=== PATIENT | female | born 1990 | race Caucasian/White ===

== ENCOUNTER 2018-11-21 02:41 | Emergency (ER) | payer SELFPAY ==
[2018-11-21] MEDS ORDERED: FAMOTIDINE 20 MG TABLET PO ONE (03:32)
[2018-11-21] MEDS ORDERED: DIPHENHYDRAMINE HCL 25 MG CAPSULE PO ONE (03:32)
[2018-11-21] MEDS ORDERED: DEXAMETHASONE SOD PHOSPHATE INJ 4 MG/1 ML VIAL IM ONE (03:32)
--- NOTE | 2018-11-21 03:35 | ER Document Report ---
HPI - HPI Patient complains to provider of: rash Time Seen by Provider: 11/21/18 03:17 Onset: Other - 2 days Quality of pain: No pain Pain Level: 2 - itchy Context: This 28-year-old female presents emergency department with complaints of a itchy rash to her upper chest that is starting to spread. Patient reports started approximately 2 days ago. She is not sure what she was exposed to she reports that she was walking in the field and could have been exposed to some kind of plant. Patient also reports that it was very high when she was wiping her chest with the shirt. She reports new detergent. Denies other symptoms such as fever vomiting diarrhea. Reports she is treated herself with Benadryl cream and hydrocortisone without relief of symptoms. No other family members have the rash. She denies allergies. Patient reports her throat feels kind of funny now also. Patient is talking in a clear voice good airway. Respiratory rate even unlabored. Associated Symptoms: None Exacerbated by: Denies Relieved by: Denies Similar symptoms previously: No Recently seen / treated by doctor: No - REPRODUCTIVE Reproductive: DENIES: : Past Medical History - General Information source: Patient Last Menstrual Period: october- denies - Social History Smoking Status: Current Every Day Smoker Cigarette use (# per day): Yes Frequency of alcohol use: None Drug Abuse: None Family History: None Patient has suicidal ideation: No Patient has homicidal ideation: No - Medical History Medical History: Negative Surgical Hx: Negative Vertical Provider Document - CONSTITUTIONAL Agree With Documented VS: Yes Exam Limitations: No Limitations General Appearance: WD/WN, No Apparent Distress - INFECTION CONTROL TRAVEL OUTSIDE OF THE [place] IN LAST 30 DAYS: No - HEENT HEENT: Atraumatic, Normocephalic. negative: Conjuctival Injection, Pharyngeal Exudate, Pharyngeal Erythema - NECK Neck: Normal Inspection, Supple. negative: Lymphadenopathy-Left, Lymphadenopathy-Right - RESPIRATORY Respiratory: Breath Sounds Normal, No Respiratory Distress - CARDIOVASCULAR Cardiovascular: Regular Rate, Regular Rhythm - MUSCULOSKELETAL/EXTREMETIES Musculoskeletal/Extremeties: EMILY CHAMBERLAIN - NEURO Level of Consciousness: Awake, Alert, Appropriate Motor/Sensory: No Motor Deficit - DERM Integumentary: Warm, Dry, Rash - scattered pruritic erythemic rash blanches to upper chest- no vesicles, no open sores/lesions Course - Re-evaluation Re-evalutation: 11/21/18 04:41 28-year-old female presents with a rash for the past 2 days. Reports very itchy. Also complains that her throat feels like it is starting to swell. Patient speaking in a clear voice. Respiratory rate is even unlabored. Rash noted to her upper chest no open wounds sores or lesions. No vesicles. Patient does have a person to drive her home. We will treat with Decadron Benadryl and Pepcid. Provide patient with a prescription for Pepcid. She was instructed to take Benadryl for the next 24 hours. She was also instructed to go home take a shower and ensure all the clothes that she has been wearing are re-washed in detergent that she is familiar with. She reports that she has already done that and also washed the sheets on her bed. She was also warned to avoid itching take cool showers for extreme itching. She verbalized understanding to all instructions. Dictation of this chart was performed using voice recognition software; therefore, there may be some unintended grammatical errors. - Vital Signs Vital signs: Temp Pulse Resp BP Pulse Ox 98.2 F 103 H 16 126/85 H 100 11/21/18 02:46 11/21/18 02:46 11/21/18 02:46 11/21/18 02:46 11/21/18 02:46 Discharge - Discharge Clinical Impression: Rash Allergic reaction Qualifiers: Encounter type: initial encounter Qualified Code(s): T78.40XA - Allergy, unspecified, initial encounter Condition: Stable Disposition: HOME, SELF-CARE Instructions: Acute Allergic Reaction ([facility]), Contact Dermatitis ([facility]), Use of Diphenhydramine, Steroid Medication Injection Additional Instructions: *You have been evaluated for a rash, allergic reaction *Take medication as prescribed *take benadryl as indicated for the next 24 hours *Follow up with a primary care provider within one week for recheck *Return to ED for worsening condition, changes, needs, trouble breathing Monitor your blood pressure. Your blood pressure was elevated today. This may be because you were anxious, in pain or because you need medication. It is imp ortant to follow up with your primary care provider for full evaluation. Prescriptions: Famotidine [Pepcid 20 mg Tablet] 20 mg PO DAILY #12 tablet Forms: Elevated Blood Pressure
[2018-11-21 04:37] VITALS: BP 120/80
== END 2018-11-21 04:36 | disposition home or self-care (01) ==
LOC: ER 02:41
DX: T78.40XA Allergy, unspecified, initial encounter (principal); R21 Rash and other nonspecific skin eruption; F17.210 Nicotine dependence, cigarettes, uncomplicated
CPT/HCPCS: 99282; 96372; J1100